=== PATIENT | female | born 2000 | race Caucasian/White ===

== ENCOUNTER 2022-10-01 12:46 | Emergency (ER) | payer BC, SELFPAY ==
[2022-10-01 13:00] VITALS: BP 121/65; PULSE 88; RESP 16; TEMP 36.8; O2SAT 97
[2022-10-01 14:41] LABS: Appearance Urine Slightly Cloudy (Clear); Bilirubin Urine 2+ (Negative); Blood Urine 2+ (Negative); Color Urine Yellow (Yellow); Glucose Urine UA Trace mg/dL (Negative); Ketones Urine 1+ mg/dL (Negative); Leukocyte Esterase Ur Trace LEU/UL (Negative); Nitrate Urine Negative (Negative); Protein Urine 2+ mg/dL (Negative); pH Urine 6.5 (5.0-9.0)
[2022-10-01 14:46] LABS: Bacteria Urine Trace /hpf; Mucus Urine Rare /lpf; RBC Urine 51-75 /hpf (0-2); Squamous Epithelial Cell Urine Moderate /hpf (Few); WBC Urine 51-75 /hpf
[2022-10-01 14:50] LABS: Add Urine Microscopic? YES
[2022-10-01] MEDS: SODIUM CHLORIDE 0.9% IV 1,000 ML 999 ML IV CONT (14:58)
[2022-10-01] MEDS: KETOROLAC 30 MG/ML VIAL (*BKC) IV PUSH (14:58)
[2022-10-01] MEDS: ONDANSETRON INJ 4 MG/2 ML VIAL IV PUSH (15:03)
[2022-10-01 15:11] LABS: Basophils Percent Auto 0.2 % (0.2-1.2); Eosinophils Percent Auto 0.2 % (0-4.4); Hematocrit 39.6 % (37.0-47.0); Hemoglobin 12.9 g/dL (12.0-15.0); Immature Granulocyte Absolute 0.04 K/mm3 (0.00-0.031); Immature Granulocyte Percent A 0.4 % (0-0.5); Lymphocytes Percent Auto 5.8 % (18.3-44.2); Mean Corpuscular HGB Conc 32.6 g/dl (32-36); Mean Corpuscular Hemoglobin 28.5 pg (26-34); Mean Corpuscular Volume 87.6 fl (80-100); Mean Platelet Volume 10.8 fl (7.4-10.4); Monocytes Absolute Auto 0.8 K/mm3 (0.1-0.6); Monocytes Percent Auto 7.5 % (2.6-8.5); Neutrophils Absolute Auto 8.9 K/mm3 (1.3-6.7); Neutrophils Percent Auto 85.9 % (45.5-73.1); Platelet Count Result 148 k/mm3 (150-375); Red Blood Count 4.52 M/mm3 (4.2-5.4); White Blood Count 10.4 K/mm3 (4.5-10.0)
[2022-10-01 15:19] LABS: Anion Gap 13 mmol/L (8-16); Blood Urea Nitrogen 10 mg/dL (7-17); Calcium 8.7 mg/dL (8.4-10.2); Carbon Dioxide 27 mmol/L (22-30); Chloride 97 mmol/L (98-107); Estimated CRCL calculation 96 ml/min; Estimated Glomerular Filt Rate > 60; Glucose 107 mg/dL (65-110); Potassium 3.3 mmol/L (3.4-5.0); Sodium 137 mmol/L (137-145)
--- NOTE | 2022-10-01 17:05 | ED.GENADULT ---
HPI - General Adult General Chief complaint: Urogenital-Female Stated complaint: UTI with bilateral back pain - on Bactrim Time Seen by Provider: 10/01/22 13:30 History of Present Illness HPI narrative: Patient is a 22-year-old female who presents ER with right-sided flank pain. She reports that she has been having burning urination and flank pain for couple of days. Went to an urgent care yesterday and was prescribed Bactrim and received an IM antibiotic injection, presumably ceftriaxone. She continues to have pain though her urinary frequency and dysuria has decreased. No fevers or chills. She has occasional nausea. She has come in for further evaluation. Currently at the end of her menstrual period. Patient reports some concern for STD would like to be evaluated. Related Data Home Medications Medication Instructions Recorded Confirmed fluoxetine 40 mg capsule 40 mg PO DAILY 10/01/22 norgestimate 0.25 mg-ethinyl 1 tablet PO DAILY 10/01/22 estradiol 35 mcg tablet (Estarylla) sulfamethoxazole 800 1 tablet PO Q12H 10/01/22 mg-trimethoprim 160 mg tablet (Bactrim DS) Allergies Allergy/AdvReac Type Severity Reaction Status Date / Time No Known Allergies Allergy Verified 10/01/22 12:48 Review of Systems Review of Systems: All systems reviewed & are unremarkable except as noted in HPI and below Constitutional: Constitutional: Denies chills, Reports fatigue and Denies fever(s) ENT: Denies nasal congestion and Denies sore throat Gastrointestinal: Gastrointestinal: Denies abdominal pain, Reports nausea and Denies vomiting Genitourinary: Genitourinary: Reports nocturia, Reports dysuria, Reports flank pain and Denies vaginal discharge Musculoskeletal: Musculoskeletal: Reports back pain, Denies arthralgias and Denies joint swelling Neurologic: Denies focal weakness and Denies numbness PMFSH Past Medical History Medical History (Updated 10/01/22 @ 17:20 by Song Drake MD) Healthy female adult Surgical History Surgical History (Updated 10/01/22 @ 17:17 by Song Drake MD) No pertinent past surgical history Social History Social History (Updated 10/01/22 @ 17:17 by Song Drake MD) Smoking status: Never smoker Exam Narrative: GENERAL: Well-appearing, well-nourished, and in no acute distress. HEAD: Normocephalic, atraumatic. ENT: Mucous membranes moist. CHEST: Clear to auscultation. No respiratory distress. HEART: Regular rate and rhythm. Normal peripheral pulses. ABDOMEN: Soft, nontender, nondistended, mild right CVA tenderness. : Vagina with small amount of old blood from menstrual cycle. No discharge. Cervix normal appearance and closed. Nonfriable without CMT. Normal external genitalia. EXTREMITIES: Normal range of motion. No edema. SKIN: Warm, dry, no rash. NEURO: Alert and oriented x3. PSYCH: Normal mood and affect. Course Course Emergency Course: Patient informed of results. Given reassurance. Encouraged continued treatment with Bactrim. We will also give pain medication nausea medication. Vital Signs Vital signs: Vital Signs Temperature 98.2 F 10/01/22 13:00 Pulse Rate 88 10/01/22 13:00 Respiratory Rate 16 10/01/22 13:00 Blood Pressure 121/65 10/01/22 13:00 Pulse Oximetry 97 10/01/22 13:00 Oxygen Delivery Room Air 10/01/22 13:00 Temperature 98.2 F 10/01/22 13:00 Pulse Rate 88 10/01/22 13:00 Respiratory Rate 16 10/01/22 13:00 Blood Pressure 121/65 10/01/22 13:00 Pulse Oximetry 97 10/01/22 13:00 Oxygen Delivery Room Air 10/01/22 13:00 Medical Decision Making Vital Signs Vital Signs: Vital Signs Temperature 98.2 F 10/01/22 13:00 Pulse Rate 88 10/01/22 13:00 Respiratory Rate 16 10/01/22 13:00 Blood Pressure 121/65 10/01/22 13:00 Pulse Oximetry 97 10/01/22 13:00 Oxygen Delivery Room Air 10/01/22 13:00 Temperature 98.2 F 10/01/22 13:00 Pulse Rate 88 10/01/22
== END 2022-10-01 18:10 | disposition home or self-care (01) ==
PROVIDERS: Emergency Provider Emergency Medicine
DX: N12 Tubulo-interstitial nephritis, not specified as acute or chronic (principal)
CPT/HCPCS: 36415; 80048; 81001; 81025; 85025; 87070; 87086; 87491; 87591; 87808; 96361; 96374; 96375; 99284; J1885; J2405; J7030

== ENCOUNTER 2023-04-16 13:13 | Emergency (ER) | payer BC, SELFPAY ==
--- NOTE | ~2023-04-16 | US_ITS ---
EXAMINATION: US right upper quadrant DATE: 04/16/2023 14:39 INDICATION: Postprandial right upper and abdominal pain TECHNIQUE: Multiple grayscale and Doppler ultrasound images of the abdomen were obtained. COMPARISON: None FINDINGS: The pancreatic head and body are normal in appearance. The pancreatic tail is not visualized. Liver has normal echogenicity and contour, with a smooth surface. No liver lesion identified. No intrahepat ic biliary duct dilation suspected. Portal venous flow was seen in the hepatopetal, normal direction and has normal Doppler waveform. The gallbladder is normal in appearance. There is no cholelithiasis . The common bile duct measures 3 mm, which is normal. Sonographic Acevedo sign was reported as negati ve by the flight manager. The visualized proximal inferior vena cava is normal. IMPRESSION: 1. Normal right upper quadrant ultrasound. Reviewed, dictated and finalized at location B.
[2023-04-16 13:27] VITALS: BP 121/76; PULSE 58; RESP 18; TEMP 36.5; O2SAT 100
[2023-04-16 14:10] LABS: Basophils Percent Auto 0.5 % (0.2-1.2); Eosinophils Absolute Auto 0.2 K/mm3 (0-0.3); Eosinophils Percent Auto 3.1 % (0-4.4); Hematocrit 43.9 % (37.0-47.0); Hemoglobin 14.7 g/dL (12.0-15.0); Immature Granulocyte Absolute 0.02 K/mm3 (0.00-0.031); Immature Granulocyte Percent A 0.3 % (0-0.5); Lymphocytes Percent Auto 27.5 % (18.3-44.2); Mean Corpuscular HGB Conc 33.5 g/dl (32-36); Mean Corpuscular Hemoglobin 28.5 pg (26-34); Mean Corpuscular Volume 85.1 fl (80-100); Mean Platelet Volume 11.7 fl (7.4-10.4); Monocytes Absolute Auto 0.5 K/mm3 (0.1-0.6); Monocytes Percent Auto 7.6 % (2.6-8.5); Neutrophils Absolute Auto 3.8 K/mm3 (1.3-6.7); Platelet Count Result 215 k/mm3 (150-375); Red Blood Count 5.16 M/mm3 (4.2-5.4); Red Cell Distribution Width 12.5 % (11.5-14.5); White Blood Count 6.2 K/mm3 (4.5-10.0)
[2023-04-16 14:17] LABS: Bacteria Urine None Seen /hpf; Non Pathogenic Casts 0-2; RBC Urine 0-2 /hpf (0-2); Squamous Epithelial Cell Urine None seen /hpf (Few); WBC Urine 0-5 /hpf
[2023-04-16 14:26] LABS: Appearance Urine Clear (Clear); Bilirubin Urine Negative (Negative); Blood Urine 1+ (Negative); Color Urine Yellow (Yellow); Glucose Urine UA Negative (Negative); Ketones Urine Negative (Negative); Leukocyte Esterase Ur Negative LEU/UL (Negative); Nitrate Urine Negative (Negative); Protein Urine Negative (Negative); Specific Grav Ur 1.025 (1.001-1.035); Urobilinogen Urine 0.2 mg/dL (<2.0); pH Urine 5.5 (5.0-9.0)
[2023-04-16 14:29] LABS: Add Urine Microscopic? YES
[2023-04-16] MEDS: SODIUM CHLORIDE 0.9% IV 1,000 ML 999 ML IV CONT (14:54)
[2023-04-16 14:59] VITALS: BP 116/58; PULSE 66; RESP 13; O2SAT 100
[2023-04-16 15:25] LABS: Alanine Aminotransferase 24 U/L (6-35); Albumin Level 4.4 g/dL (3.5-5.1); Alkaline Phosphatase 57 U/L (38-126); Anion Gap 8 mmol/L (8-16); Aspartate Amino Transferase 30 U/L (14-36); Bilirubin,Total 0.4 mg/dL (0.2-1.3); Blood Urea Nitrogen 14 mg/dL (7-17); Calcium 9.1 mg/dL (8.4-10.2); Carbon Dioxide 27 mmol/L (22-30); Chloride 103 mmol/L (98-107); Estimated CRCL calculation 94 ml/min; Estimated Glomerular Filt Rate > 60; Glucose 88 mg/dL (65-110); Lipase 54 U/L (23-300); Potassium 3.7 mmol/L (3.4-5.0); Sodium 138 mmol/L (137-145)
--- NOTE | 2023-04-16 15:36 | ED.ABDPAIN ---
HPI - Abdominal Pain General Chief Complaint: Abdominal Pain Stated Complaint: abdominal pain Time Seen by Provider: 04/16/23 13:35 Source: patient Mode of arrival: ambulatory Limitations: no limitations History of Present Illness HPI narrative: This is a 22-year-old female presents to the ED with chief complaint of diarrhea x5 days. Patient was referred here from the urgent care who was concerned for her gallbladder. Patient states that she was on a cruise last week and started having the symptoms when she got back. She notes that when she eats she has generalized abdominal pain followed by explosive diarrhea. Denies any bloody stools. States the stools are just straight water. She reports 2 loose stools today. She has had up to 10. She reports that her mother has had similar symptoms and started feeling better today. Patient states that she is able to drink water but food certainly makes the symptoms worse. Denies nausea, vomiting, fevers, chills, chest pain, cough, shortness of breath, urinary symptoms, flank pain. Related Data Home Medications Medication Instructions Recorded Confirmed fluoxetine 40 mg capsule 40 mg PO DAILY 10/01/22 norgestimate 0.25 mg-ethinyl 1 tablet PO DAILY 10/01/22 estradiol 35 mcg tablet (Estarylla) sulfamethoxazole 800 1 tablet PO Q12H 10/01/22 mg-trimethoprim 160 mg tablet (Bactrim DS) Allergies Allergy/AdvReac Type Severity Reaction Status Date / Time No Known Allergies Allergy Verified 04/16/23 13:15 Review of Systems Review of Systems: CONSTITUTIONAL: Denies fever, chills, or sweats. EYES: Denies visual changes, redness, or discharge. ENT: Denies rhinorrhea, congestion, sore throat, or otalgia. CARDIOVASCULAR: Denies chest pain, palpitations, or edema. RESPIRATORY: Denies cough or dyspnea. GASTROINTESTINAL: See HPI GENITOURINARY: Denies dysuria or hematuria. SKIN: Denies rash or itching. MUSCULOSKELETAL: Denies back pain, joint pain, or myalgia. NEUROLOGIC: Denies headache, numbness, dizziness, or weakness. PSYCHIATRIC: Denies anxiety or depression. [facility] Past Medical History Medical History (Updated 04/16/23 @ 15:55 by Yobani Finch PA-C) Healthy female adult Surgical History Surgical History (Updated 10/01/22 @ 17:17 by Song Drake MD) No pertinent past surgical history Social History Social History (Updated 10/01/22 @ 17:17 by Song Drake MD) Smoking status: Never smoker Exam Narrative: GENERAL: Well-appearing, well-nourished, and in no acute distress. Pleasant and conversational. Resting comfortably. HEAD: Normocephalic, atraumatic. EYES: PERRLA and EOMI. ENT: Nares clear, no rhinorrhea or epistaxis. Mucous membranes moist. Oropharynx without tonsillar hypertrophy exudate or other lesions. NECK: Supple. No adenopathy or masses. CHEST: No respiratory distress. Clear to auscultation. No wheezes rales or rhonchi HEART: Regular rate and rhythm. No murmur heard. Normal peripheral pulses. ABDOMEN: Negative flank tenderness. Mild right upper quadrant tenderness. Soft, otherwise nontender, nondistended, normal active bowel sounds. Negative peritoneal signs. MSK: Normal range of motion. No edema. SKIN: Warm, dry, no rash. NEURO: Alert and oriented x3. No focal deficits. PSYCH: Normal mood and affect. Course Vital Signs Vital signs: Vital Signs Temperature 97.7 F 04/16/23 13:27 Pulse Rate 58 L 04/16/23 13:27 Respiratory Rate 18 04/16/23 13:27 Blood Pressure 121/76 04/16/23 13:27 Pulse Oximetry 100 04/16/23 13:27 Oxygen Delivery Room Air 04/16/23 13:27 Temperature 97.7 F 04/16/23 13:27 Pulse Rate 87 04/16/23 16:09 Respiratory Rate 16 04/16/23 16:09 Blood Pressure 118/88 04/16/23 16:09 Pulse Oximetry 100 04/16/23 16:09 Oxygen Delivery Room Air 04/16/23 13:27 MDM - Abdominal Pain MDM Narrative Medical decision making narrative: This is a 22-year-old femal
[2023-04-16 16:09] VITALS: BP 118/88; PULSE 87; RESP 16; O2SAT 100
== END 2023-04-16 16:10 | disposition home or self-care (01) ==
PROVIDERS: Emergency Provider Physician Assistant
DX: K52.9 Noninfective gastroenteritis and colitis, unspecified (principal)
CPT/HCPCS: 36415; 76705; 80053; 81001; 81025; 83690; 85025; 96360; 99284; J7030